=== PATIENT | female | born 1990 | race Caucasian/White ===

== ENCOUNTER → 2017-06-20 | Outpatient (REF) | payer SELFPAY ==
[~2017-06-20] MED LIST: ACET50TA PO; GUMMCHW PO; IBUP60TA PO
[2017-06-20 18:19] LABS: MEAN CORPUSCULAR HEMOGLOBIN 32.8 pg (27.0-33.0); MEAN CORPUSCULAR HGB CONC 35.8 g/dl (32.0-36.5); MEAN CORPUSCULAR VOLUME 91.8 fl (80.0-96.0); RED CELL DISTRIBUTION WIDTH 12.1 % (11.5-14.5); WHITE BLOOD COUNT 11.6 K/mm3 (4.0-10.0)
[2017-06-20 19:23] LABS: HCG, SERUM QUANTITATIVE 2677 MIU/ML
== END ==
LOC: M LAB REF 16:53
PROVIDERS: ATTEND Obstetrics & Gynecology
DX: O36.80X0 Pregnancy with inconclusive fetal viability, not applicable or unspecified (principal)

== ENCOUNTER → 2017-09-12 | Outpatient (CLI) | payer OTHER ==
[2017-09-12 15:18] LABS: MEAN CORPUSCULAR HEMOGLOBIN 30.5 pg (27.0-33.0); MEAN CORPUSCULAR HGB CONC 34.2 g/dl (32.0-36.5); MEAN CORPUSCULAR VOLUME 89.2 fl (80.0-96.0); PLATELET COUNT, AUTOMATED 276 10^3/uL (150-450); RED CELL DISTRIBUTION WIDTH 11.9 % (11.5-14.5); WHITE BLOOD COUNT 10.9 10^3/uL (4.0-10.0)
== END ==
LOC: M LAB 13:05
PROVIDERS: ATTEND Obstetrics & Gynecology
DX: Z3A.34 34 weeks gestation of pregnancy (principal)

== ENCOUNTER → 2017-09-18 | Outpatient (REF) | payer OTHER | LOC: M LAB REF 16:23 | PROVIDERS: ATTEND Obstetrics & Gynecology | DX: Z34.83 Encounter for supervision of other normal pregnancy, third trimester (principal) ==

== ENCOUNTER 2017-10-04 12:04 | Inpatient (IN) | payer OTHER ==
[2017-10-04] MEDS: LACTATED RINGER'S 1000 ML IV (12:43)
[2017-10-04] MEDS ORDERED: LR 1,000 ML IV (12:43)
[2017-10-04 12:59] LABS: HEMATOCRIT 33.8 % (36.0-47.0); HEMOGLOBIN 11.6 g/dl (12.0-16.0); MEAN CORPUSCULAR HEMOGLOBIN 29.5 pg (27.0-33.0); MEAN CORPUSCULAR HGB CONC 34.3 g/dl (32.0-36.5); PLATELET COUNT, AUTOMATED 354 10^3/uL (150-450); RED BLOOD COUNT 3.93 10^6/uL (4.00-5.40)
[2017-10-04] MEDS ORDERED: OXYTOCIN 30 UNITS IN 0.9% NaCl 500ML IV BAG (J2590) As Ordered (15:30)
[2017-10-04 17:20] LABS: CORD GAS ABE V -3.7; CORD GAS HCO3 V 21.2 MEQ/L; CORD GAS PCO2 V 38.1 mmHg; CORD GAS PH V 7.363 UNITS; CORD GAS PO2 V 32.4 mmHg; CORD GAS SBC V 20.8 MEQ/L; CORD GAS TCO2 V 22.4 MEQ/L
[2017-10-04 17:23] LABS: CORD GAS ABE A -3.5; CORD GAS O2 SAT A 64.6 %; CORD GAS PCO2 A 46.4 mmHg; CORD GAS PH A 7.313 UNITS; CORD GAS PO2 A 28.5 mmHg; CORD GAS SBC A 20.8 MEQ/L; CORD GAS TCO2 A 24.4 MEQ/L
[2017-10-04] MEDS: OXYTOCIN DRIP 30 UNITS in APPROPRIATE DILUENT 1 EA IV (17:23)
[2017-10-04] MEDS ORDERED: ACETAMINOPHEN 500 MG TAB PO (17:30)
[2017-10-04] MEDS ORDERED: DOCUSATE SODIUM 100 MG CAP PO (17:30)
[2017-10-04] MEDS ORDERED: METHYLERGONOVINE MALEATE 0.2 MG TAB PO (17:30)
[2017-10-04] MEDS ORDERED: DIBUCAINE 1% OINTMENT 30GM TOP (17:30)
[2017-10-04] MEDS: RHOGAM 300 MCG (1500 IU) INJ (J2790) IM (17:49)
[2017-10-04] MEDS: MEASLES,MUMPS,RUBELLA VACCINE INJ (MMR-II) (90707) SC (17:50)
[2017-10-04] MEDS: IBUPROFEN 800 MG TAB PO (18:14)
[2017-10-05] MEDS: IBUPROFEN 800 MG TAB PO ×2 (02:16→15:39)
[2017-10-05] MEDS: PRENATAL VITAMINS CHEWABLE TABLET PO (09:00)
== END 2017-10-06 11:10 | disposition home or self-care (01) | DRG 560 ==
LOC: M LDI 12:04 → M OBS 18:57
PROVIDERS: Obstetrics & Gynecology
PROC: 10E0XZZ Delivery of Products of Conception, External Approach (ICD-10-PCS; principal; 2017-10-04)
DX: O80 Encounter for full-term uncomplicated delivery (principal); Z37.0 Single live birth; Z3A.38 38 weeks gestation of pregnancy

== ENCOUNTER → 2018-04-23 | Outpatient (REF) | payer OTHER ==
[2018-04-23 20:20] LABS: HEMATOCRIT 36.7 % (36.0-47.0); HEMOGLOBIN 12.5 g/dl (12.0-15.5); MEAN CORPUSCULAR HEMOGLOBIN 31.3 pg (27.0-33.0); MEAN CORPUSCULAR HGB CONC 34.1 g/dl (32.0-36.5); PLATELET COUNT, AUTOMATED 311 10^3/uL (150-450); RED BLOOD COUNT 3.99 10^6/uL (4.00-5.40); RED CELL DISTRIBUTION WIDTH 11.7 % (11.5-14.5); WHITE BLOOD COUNT 7.5 10^3/uL (4.0-10.0)
[2018-04-23 21:06] LABS: HCG, SERUM QUANTITATIVE 45774 MIU/ML
[2018-04-25 11:45] LABS: RUBELLA IgG QUALITATIVE IMMUNE (IMMUNE)
[2018-04-25 12:01] LABS: HBsAg Prenatal NEGATIVE (NEGATIVE)
[2018-04-25 12:15] LABS: HIV 1&2 SCREEN CENTAUR NEGATIVE (NEGATIVE)
[2018-04-25 12:15] LABS: HEPATITIS C VIRUS ABY INDEX < 0.0 INDEX (<0.8)
== END ==
LOC: M LAB REF 17:16
DX: O36.80X0 Pregnancy with inconclusive fetal viability, not applicable or unspecified (principal); Z3A.00 Weeks of gestation of pregnancy not specified
CPT/HCPCS: 86762

== ENCOUNTER → 2018-05-28 | Outpatient (REF) | payer OTHER ==
[2018-05-28 21:06] LABS: CHLAMYDIA DNA AMPLIFICATION NEGATIVE (NEGATIVE); GC DNA AMPLIFICATION NEGATIVE (NEGATIVE)
== END ==
LOC: M LAB REF 17:16
DX: Z34.81 Encounter for supervision of other normal pregnancy, first trimester (principal)

== ENCOUNTER → 2018-09-17 | Outpatient (CLI) | payer OTHER ==
[2018-09-17 13:06] LABS: HEMOGLOBIN 10.5 g/dl (12.0-15.5); MEAN CORPUSCULAR HEMOGLOBIN 32.1 pg (27.0-33.0); MEAN CORPUSCULAR VOLUME 91.7 fl (80.0-96.0); PLATELET COUNT, AUTOMATED 237 10^3/uL (150-450); RED BLOOD COUNT 3.27 10^6/uL (4.00-5.40); RED CELL DISTRIBUTION WIDTH 12.2 % (11.5-14.5); WHITE BLOOD COUNT 8.6 10^3/uL (4.0-10.0)
[2018-09-17 14:27] LABS: GLUCOSE CHALLENGE TEST 1 HOUR 135 MG/DL (LESS THAN 140)
== END ==
LOC: M LAB 11:31
DX: Z36.89 Encounter for other specified antenatal screening (principal)
CPT/HCPCS: 82950

== ENCOUNTER → 2018-11-13 | Outpatient (REF) | payer OTHER ==
[~2018-11-13] MED LIST changes: -ACET50TA PO; +IBUP-1114 PO; +MAPA500T2 PO; +PRENTAB9 PO
== END ==
LOC: M LAB REF 13:09
PROVIDERS: ATTEND Obstetrics & Gynecology
DX: Z34.83 Encounter for supervision of other normal pregnancy, third trimester (principal); Z3A.00 Weeks of gestation of pregnancy not specified

== ENCOUNTER 2018-12-09 23:10 | Inpatient (IN) | payer OTHER ==
[~2018-12-09] VITALS: Ht 167.6 cm; Wt 72.0 kg
[2018-12-09] MEDS ORDERED: OXYTOCIN 30 UNITS IN 0.9% NaCl 500ML IV BAG (J2590) As Ordered ONE (23:12)
[2018-12-09] MEDS ORDERED: LR 1,000 ML IV ONE (23:30)
[2018-12-09] MEDS ORDERED: LR 1,000 ML IV SCH (23:30)
[2018-12-09 23:40] LABS: HEMATOCRIT 34.4 % (36.0-47.0); HEMOGLOBIN 11.6 g/dl (12.0-15.5); MEAN CORPUSCULAR HEMOGLOBIN 29.7 pg (27.0-33.0); MEAN CORPUSCULAR HGB CONC 33.7 g/dl (32.0-36.5); PLATELET COUNT, AUTOMATED 279 10^3/uL (150-450); RED BLOOD COUNT 3.91 10^6/uL (4.00-5.40); WHITE BLOOD COUNT 14.3 10^3/uL (4.0-10.0)
[2018-12-10] VITALS (9 sets, daily range): BP systolic 102–123; BP diastolic 67–78
[2018-12-10] MEDS ORDERED: OXYTOCIN DRIP 30 UNITS in APPROPRIATE DILUENT 1 EA IV SCH (00:13)
[2018-12-10] MEDS ORDERED: DOCUSATE SODIUM 100 MG CAP PO PRN (00:15)
[2018-12-10] MEDS ORDERED: METHYLERGONOVINE MALEATE 0.2 MG TAB PO PRN (00:15)
[2018-12-10] MEDS ORDERED: DIBUCAINE 1% OINTMENT 30GM TOP PRN (00:15)
[2018-12-10] MEDS ORDERED: RHOGAM 300 MCG (1500 IU) INJ (J2790) IM SCH (00:15)
[2018-12-10] MEDS ORDERED: MEASLES,MUMPS,RUBELLA VACCINE INJ (MMR-II) (90707) SC SCH (00:15)
[2018-12-10] MEDS ORDERED: ACETAMINOPHEN 500 MG TAB PO PRN (00:15)
[2018-12-10] MEDS ORDERED: MOM 30ML SUSPENSION UDC PO PRN (00:15)
--- NOTE | 2018-12-10 00:26 | HPE ---
DATE OF ADMISSION: 12/09/2018 Trev is a 28-year-old female 3, para 2-0-0-2 with an estimated date of confinement (EDC) of 12/05/2018, estimated gestational age (EGA) 40-4/7 weeks gestation who presented to labor and delivery with gross rupture of membranes and active labor. After initial evaluation, the decision was made to admit the patient. record reviewed, which was essentially unremarkable. She initiated care at approximately 8 weeks. Her labs: Blood type is O positive. Hepatitis negative, HIV negative, GC, chlamydia negative, 1-hour sugar testing was within normal limits. Her GBS is negative. PAST MEDICAL HISTORY: Significant for anxiety, depression. PAST SURGICAL HISTORY: Denies. SOCIAL HISTORY: The patient is . Denies any alcohol, drug or cigarette smoking. REVIEW OF SYSTEMS: Unremarkable. FAMILY HISTORY: Significant for cervical cancer. MEDICATIONS: vitamin ALLERGIES: No known drug allergies. PHYSICAL EXAMINATION ON ADMISSION: HEENT: Grossly within normal limits. Abdomen: Soft, nontender, nondistended. Extremities: No clubbing, cyanosis or edema. Vaginal exam: Fully dilated with the fetus at +1 to +2 station in the vertex position. Tracing reviewed. Category one tracing. ASSESSMENT: Intrauterine at 40-4/7 weeks gestation with gross rupture of membranes, in second stage of labor. PLAN: Admit to labor and delivery. Routine labs sent. Awaiting delivery.
[2018-12-10] MEDS: IBUPROFEN 800 MG TAB PO PRN ×3 (00:52→16:14)
[2018-12-10 01:08] LABS: CORD GAS ABE A -1.5; CORD GAS HCO3 A 28.1 MEQ/L; CORD GAS O2 SAT A 42.7 %; CORD GAS PCO2 A 67.9 mmHg; CORD GAS PH A 7.235 UNITS; CORD GAS PO2 A 22.1 mmHg; CORD GAS SBC A 21.7 MEQ/L; CORD GAS TCO2 A 30.2 MEQ/L
[2018-12-10 01:11] LABS: CORD GAS ABE V -2.7; CORD GAS HCO3 V 23.3 MEQ/L; CORD GAS O2 SAT V 71.2 %; CORD GAS PCO2 V 44.4 mmHg; CORD GAS PH V 7.337 UNITS; CORD GAS PO2 V 31.5 mmHg; CORD GAS SBC V 21.5 MEQ/L; CORD GAS TCO2 V 24.6 MEQ/L
--- NOTE | 2018-12-10 05:06 | DN ---
DATE OF DELIVERY: 12/09/2018 Trev is a 28-year-old female 3, para 2-0-0-2 who was admitted at 40-4/7 weeks gestation in active labor with spontaneous rupture of membranes. She was found then to be fully dilated, pushed and delivered a live male in left occiput anterior position over an intact perineum. Apgars 9/9. weight 8 pounds 2 ounces. Placenta delivered spontaneously intact, two-vessel cord. Perineum, vagina and cervix inspected. No laceration noted. Estimated blood loss: 300 mL. Both mother and baby in stable condition.
[2018-12-10] MEDS: PRENATAL VITAMINS CHEWABLE TABLET PO SCH (08:11)
[2018-12-11 06:36] VITALS: BP 120/80
[2018-12-11] MEDS: IBUPROFEN 800 MG TAB PO PRN (07:29)
[2018-12-11] MEDS: PRENATAL VITAMINS CHEWABLE TABLET PO SCH (08:30)
== END 2018-12-11 12:35 | disposition home or self-care (01) | DRG 560 ==
LOC: M LDI 23:10 → M OBS 12-10 03:17
PROVIDERS: ADMIT Obstetrics & Gynecology; ATTEND Obstetrics & Gynecology
PROC: 10E0XZZ Delivery of Products of Conception, External Approach (ICD-10-PCS; principal; 2018-12-09)
DX: O48.0 Post-term pregnancy (principal); Z37.0 Single live birth; Z3A.40 40 weeks gestation of pregnancy

== ENCOUNTER → 2021-12-14 | Outpatient (REF) | payer OTHER, MEDICAID ==
[~2021-12-14] MED LIST changes: +IBUP600T42 PO; -IBUP60TA PO
[2021-12-14 17:05] LABS: HEMATOCRIT 34.9 % (36.0-47.0); HEMOGLOBIN 12.3 g/dl (12.0-15.5); MEAN CORPUSCULAR HEMOGLOBIN 32.4 pg (27.0-33.0); MEAN CORPUSCULAR HGB CONC 35.2 g/dl (32.0-36.5); MEAN CORPUSCULAR VOLUME 91.8 fl (80.0-96.0); PLATELET COUNT, AUTOMATED 284 10^3/uL (150-450); WHITE BLOOD COUNT 9.9 10^3/uL (4.0-10.0)
[2021-12-14 18:06] LABS: HCG, SERUM QUANTITATIVE 2538 MIU/ML; HEPATITIS C VIRUS ABY INDEX 0.1 INDEX (<0.8); HIV 1&2 SCREEN CENTAUR NEGATIVE (NEGATIVE)
== END ==
LOC: M LAB REF 16:21
PROVIDERS: ATTEND Obstetrics & Gynecology
DX: Z32.01 Encounter for pregnancy test, result positive (principal); O36.80X0 Pregnancy with inconclusive fetal viability, not applicable or unspecified

== ENCOUNTER → 2022-01-26 | Outpatient (CLI) | payer OTHER ==
[2022-01-26 14:20] LABS: HEMATOCRIT 35.4 % (36.0-47.0); HEMOGLOBIN 12.2 g/dl (12.0-15.5); MEAN CORPUSCULAR HEMOGLOBIN 32.3 pg (27.0-33.0); MEAN CORPUSCULAR HGB CONC 34.5 g/dl (32.0-36.5); MEAN CORPUSCULAR VOLUME 93.7 fl (80.0-96.0); PLATELET COUNT, AUTOMATED 253 10^3/uL (150-450); RED BLOOD COUNT 3.78 10^6/uL (4.00-5.40)
== END ==
LOC: M LAB 12:34
PROVIDERS: ATTEND Obstetrics & Gynecology
DX: Z34.82 Encounter for supervision of other normal pregnancy, second trimester (principal); Z3A.00 Weeks of gestation of pregnancy not specified

== ENCOUNTER → 2022-03-29 | Outpatient (REF) | payer OTHER, MEDICAID | LOC: M LAB REF 16:46 | PROVIDERS: ATTEND Obstetrics & Gynecology | DX: Z34.83 Encounter for supervision of other normal pregnancy, third trimester (principal) ==

== ENCOUNTER 2022-04-23 20:59 | Inpatient (IN) | payer OTHER, MEDICAID ==
[~2022-04-23] VITALS: Ht 170.2 cm; Wt 78.0 kg
[2022-04-23] MEDS ORDERED: HOME MED LIST COMPLETE! XX SCH (21:20)
[2022-04-23 21:25] VITALS: BP 129/74
[2022-04-23] MEDS ORDERED: LACTATED RINGER'S 1000 ML IV STA (22:11)
[2022-04-23] MEDS ORDERED: OXYTOCIN DRIP 30 UNITS in IV 1 EA IV PRN (22:15)
[2022-04-23] MEDS ORDERED: OXYTOCIN INJ 10 UNITS/ML VIAL (J2590) IM PRN (22:15)
[2022-04-23] MEDS ORDERED: CARBOPROST TROMETHAMINE 250 MCG/ML AMP IM PRN (22:15)
[2022-04-23] MEDS ORDERED: METHYLERGONOVINE MALEATE 0.2 MG/ML VIAL (J2210) IM PRN (22:15)
[2022-04-23] MEDS ORDERED: LIDOCAINE 1% MDV 20ML VIAL INFIL PRN (22:15)
[2022-04-23] MEDS ORDERED: TRANEXAMIC ACID INJection 1,000 MG in NS 100 ML IV PRN (22:15)
[2022-04-23 22:34] LABS: HEMATOCRIT 33.8 % (36.0-47.0); HEMOGLOBIN 11.8 g/dl (12.0-15.5); MEAN CORPUSCULAR HEMOGLOBIN 31.2 pg (27.0-33.0); MEAN CORPUSCULAR HGB CONC 34.9 g/dl (32.0-36.5); MEAN CORPUSCULAR VOLUME 89.4 fl (80.0-96.0); PLATELET COUNT, AUTOMATED 252 10^3/uL (150-450); RED BLOOD COUNT 3.78 10^6/uL (4.00-5.40); WHITE BLOOD COUNT 13.2 10^3/uL (4.0-10.0)
[2022-04-23 23:04] VITALS: BP 122/81
[2022-04-24] VITALS (19 sets, daily range): BP systolic 95–137; BP diastolic 53–86
[2022-04-24] MEDS ORDERED: FENTANYL 2MCG/ML ROPIVACAINE 0.2% IN 0.9% NACL 100ML IVBAG As Ordered ONE (03:15)
[2022-04-24] MEDS ORDERED: OXYTOCIN DRIP 30 UNITS in IV 1 EA IV SCH (05:00)
[2022-04-24] MEDS ORDERED: LR 1,000 ML IV SCH (05:00)
[2022-04-24] MEDS ORDERED: EPIDURAL/PCA KEYS XX PRN (07:00)
[2022-04-24] MEDS ORDERED: LACTATED RINGER'S 1000 ML IV PRN (07:00)
[2022-04-24] MEDS ORDERED: FENTANYL/ROPIVACAINE/NACL BAG 100 ML EPIDURAL SCH (07:00)
[2022-04-24] MEDS ORDERED: ONDANSETRON 4MG 2ML VIAL IV PRN (07:00)
[2022-04-24] MEDS ORDERED: REFRIGERATOR IV KEYS XX PRN (07:00)
[2022-04-24] MEDS ORDERED: ePHEDrine SULFATE 25 MG/5 ML(5MG/ML) SYRINGE IV PRN (07:00)
[2022-04-24] MEDS ORDERED: diphenhydrAMINE 50MG/ML VIAL (J1200) IV PRN (07:00)
[2022-04-24] MEDS ORDERED: EPIDURAL COMMENT XX SCH (07:00)
[2022-04-24] MEDS ORDERED: NALOXONE INJ 0.4MG/1ML VIAL (J2310 PER 1MG) IV PRN (07:00)
[2022-04-24] MEDS ORDERED: DIBUCAINE 1% OINTMENT 30GM TOP PRN (07:40)
[2022-04-24] MEDS ORDERED: RHOGAM 300 MCG (1500 IU) INJ (J2790) IM SCH (07:40)
[2022-04-24] MEDS ORDERED: IBUPROFEN 600MG TAB PO PRN (07:40)
[2022-04-24] MEDS ORDERED: DOCUSATE SODIUM 100MG CAPSULE PO PRN (07:40)
[2022-04-24] MEDS ORDERED: ANUSOL HC CREAM 30GM TOP PRN (07:40)
[2022-04-24] MEDS ORDERED: ACETAMINOPHEN TAB 650MG DOSE (2X325MG) PO PRN (07:40)
[2022-04-24] MEDS ORDERED: MOM 30ML SUSPENSION UDC PO PRN (07:40)
[2022-04-24] MEDS: PRENATAL VITAMINS CHEWABLE TABLET PO SCH (09:00)
[2022-04-24] MEDS: IBUPROFEN 800 MG TAB PO PRN ×2 (14:06→22:43)
[2022-04-24] MEDS: ACETAMINOPHEN 500 MG TAB PO PRN (18:10)
[2022-04-25 06:08] VITALS: BP 123/72
[2022-04-25] MEDS: ACETAMINOPHEN 500 MG TAB PO PRN (06:22)
[2022-04-25] MEDS: IBUPROFEN 800 MG TAB PO PRN (06:54)
[2022-04-25] MEDS: PRENATAL VITAMINS CHEWABLE TABLET PO SCH (08:53)
[2022-04-26] MEDS ORDERED: MEASLES,MUMPS,RUBELLA VACCINE INJ (MMR-II) (90707) SC.IMMUN ONE (09:00)
== END 2022-04-25 10:55 | disposition home or self-care (01) | DRG 560 ==
LOC: M LDO 20:59 → M LDI 22:14 → M OBS 04-24 10:15
PROVIDERS: ADMIT Advanced Practice Midwife; ATTEND Advanced Practice Midwife
PROC: 10E0XZZ Delivery of Products of Conception, External Approach (ICD-10-PCS; principal; 2022-04-24)
DX: O48.0 Post-term pregnancy (principal); O69.1XX0 Labor and delivery complicated by cord around neck, with compression, not applicable or unspecified; Z37.0 Single live birth; Z3A.41 41 weeks gestation of pregnancy